=== PATIENT | male | born 1990 | race African-American/Black ===

== ENCOUNTER 2018-10-12 00:16 | Emergency (ER) | payer SELFPAY ==
[2018-10-12 00:51] VITALS: BP 130/76; PULSE 85; TEMP 97.6; BMI 30.6
--- NOTE | 2018-10-12 00:54 | PDOC ---
Attending Attestation - Resident Resident Name: Lucio Coronel - ED Attending Attestation I have performed the following: I have examined & evaluated the patient, The case was reviewed & discussed with the resident, I agree w/resident's findings & plan, Exceptions are as noted - HPI HPI: 10/12/18 02:49 Mr Tom is a 28 yo M who presents to the ER s/p fall onto his left hand s/p fall at 6pm yesterday while playing basketball. He fell and landed on his left wrist. No LOC, head strike. 10/12/18 02:52 - Physicial Exam PE: 10/12/18 02:50 GENERAL: The patient is in no acute distress. HEAD: Normal with no signs of trauma. NECK: Normal range of motion, supple without midline tenderness LUNGS: Breath sounds equal, clear to auscultation bilaterally. HEART:Regular rate and rhythm, normal S1 and S2 without murmur, rub or gallop. ABDOMEN: Soft, nontender, normoactive bowel sounds. EXTREMITIES: Left hand tender to palpation, ROM limited at wrist, moves fingers Snuffbox tenderness Lateral metatarsal tenderness NEUROLOGICAL: Cranial nerves II through XII grossly intact. Normal speech. No focal neurological deficits. SKIN: No laceration - Medical Decision Making 10/12/18 02:54 28 yo M with left hand injury Will do Xray Will do motrin X ray demonstrates: triquetral fracture, initial presentation Volar splint applied for triquetral fracture Thumb spica applied due to snuff box tenderness Follow up with Hand within 1 week *DC/Admit/Observation/Transfer Diagnosis at time of Disposition: Triquetral fracture - Discharge Dispostion Disposition: HOME Condition at time of disposition: Good - Prescriptions Prescriptions: Oxycodone HCl/Acetaminophen [Percocet 5-325 mg Tablet -] 1 tab PO TID PRN #9 tablet MDD 3 PRN Reason: Severe Pain - Referrals Referrals: Ilya Wong MD [Staff Physician] - - Patient Instructions Printed Discharge Instructions: DI for Wrist Fracture Additional Instructions: Please call orthopedics tomorrow morning. Please return immediately if you have any new, worsening or concerning symptoms , increasing pain, sensory loss. - Post Discharge Activity Forms/Work/School Notes: Back to Work
--- NOTE | 2018-10-12 01:34 | PDOC ---
History of Present Illness - General Chief Complaint: Injury Stated Complaint: HAND PAIN Time Seen by Provider: 10/12/18 00:53 History Source: Patient Exam Limitations: No Limitations - History of Present Illness Initial Comments: 10/12/18 01:37 Patient is a 28M with no significant medical history here today complaining of pain to his left wrist after a fall at 6pm yesterday. Patient states that he was going for a dunk in basketball when he fell and landed on his left wrist. No LOC, head strike. Denies pain elsewhere. Patient denies nausea, vomiting, fevers, chills. Denies chest pain, abdominal pain and shortness of breath. Past History - Past Medical History Allergies/Adverse Reactions: Allergies Allergy/AdvReac Type Severity Reaction Status Date / Time No Known Allergies Allergy Verified 10/12/18 00:50 Home Medications: Ambulatory Orders NK [No Known Home Medication] 10/12/18 - Suicide/Smoking/Psychosocial Hx Smoking History: Never smoked Have you smoked in the past 12 months: No Information on smoking cessation initiated: No Hx Alcohol Use: No Drug/Substance Use Hx: No Review of Systems - Review of Systems Comments:: 10/12/18 01:39 GENERAL/CONSTITUTIONAL: No fever or chills. No weakness. CARDIOVASCULAR: No chest pain or shortness of breath RESPIRATORY: No cough, wheezing, or hemoptysis. GASTROINTESTINAL: No nausea, vomiting, diarrhea or constipation. MUSCULOSKELETAL: + L wrist pain. No neck or back pain. SKIN: No rash NEUROLOGIC: No headache, vertigo, loss of consciousness, or change in strength/ sensation. ENDOCRINE: No increased thirst. No abnormal weight change HEMATOLOGIC/LYMPHATIC: No anemia, easy bleeding, or history of blood clots. ALLERGIC/IMMUNOLOGIC: No hives or skin allergy. *Physical Exam - Vital Signs Last Vital Signs Temp Pulse Resp BP Pulse Ox 97.6 F 85 20 130/76 99 10/12/18 00:50 10/12/18 00:50 10/12/18 00:50 10/12/18 00:50 10/12/18 00:50 - Physical Exam Comments: 10/12/18 01:40 GENERAL: Awake, alert, and fully oriented, in no acute distress L HAND: +snuffbox tenderness, +pain with axial loading of thumb, neurovascularly intact distal to injury. +Tender in fifth metacarpal. No pain in radius, ulna, or elbow. HEAD: No signs of trauma, normocephalic, atraumatic EYES: PERRLA, EOMI, sclera anicteric, conjunctiva clear ENT: Auricles normal inspection, hearing grossly normal, nares patent, oropharynx clear without exudates. Moist mucosa NECK: Normal ROM, supple, no lymphadenopathy, JVD, or masses LUNGS: No distress, speaks full sentences, clear to auscultation bilaterally HEART: Regular rate and rhythm, normal S1 and S2, no murmurs, rubs or gallops, peripheral pulses normal and equal bilaterally. ABDOMEN: Soft, nontender, normoactive bowel sounds. No guarding, no rebound. No masses EXTREMITIES: Normal inspection, Normal range of motion, no edema. No clubbing or cyanosis. NEUROLOGICAL: Cranial nerves II through XII grossly intact. Normal speech, normal gait, no focal sensorimotor deficits SKIN: Warm, Dry, normal turgor, no rashes or lesions noted. Moderate Sedation - Procedure Monitoring Vital Signs: Procedure Monitoring Vital Signs Temperature 97.6 F 10/12/18 00:50 Pulse Rate 85 10/12/18 00:50 Respiratory Rate 20 10/12/18 00:50 Blood Pressure 130/76 10/12/18 00:50 O2 Sat by Pulse Oximetry (%) 99 10/12/18 00:50 ED Treatment Course - RADIOLOGY Radiology Studies Ordered: Category Date Time Status WRIST W/HAND-LEFT* [RAD] Stat Radiology 10/12/18 01:01 Ordered - Medications Given in the ED: ED Medications Discontinued Medications Generic Name Dose Route Start Last Admin Trade Name Alee PRN Reason Stop Dose Admin Oxycodone/Acetaminophen 1 combo 10/12/18 01:01 10/12/18 01:09 Percocet 5/325 - PO 10/12/18 01:02 1 combo ONCE ONE Administration Medical Decision Making - Medical Decision Making 10/12/18 01:42 Patient is 28M here today with L hand/wrist pain. Vitals normal and stable. Percocet given for pain. Will do x-rays for further evaluation. Will splint and have patient follow up with ortho regardless of result. 10/12/18 02:43 X-ray shows fracture of triquetrum. Placed in volar wrist splint. Thumb given additional support. Will refer to ortho. *DC/Admit/Observation/Transfer Diagnosis at time of Disposition: Triquetral fracture - Discharge Dispostion Disposition: HOME Condition at time of disposition: Good Decision to Admit order: No - Referrals - Patient Instructions Printed Discharge Instructions: DI for Wrist Fracture Additional Instructions: Please call orthopedics tomorrow morning. Please return immediately if you have any new, worsening or concerning symptoms , increasing pain, sensory loss. - Post Discharge Activity Forms/Work/School Notes: Back to Work
== END 2018-10-12 02:52 | disposition home or self-care (01) ==
LOC: JER 00:16
DX: S62.112A Displaced fracture of triquetrum [cuneiform] bone, left wrist, initial encounter for closed fracture (principal); W18.39XA Other fall on same level, initial encounter; Y93.89 Activity, other specified; Y92.89 Other specified places as the place of occurrence of the external cause
CPT/HCPCS: 73110-TC-LT-FY; 73130-TC-LT-FY; 99281-25

== ENCOUNTER 2018-12-24 11:17 | Emergency (ER) | payer SELFPAY ==
[2018-12-24 11:31] VITALS: BP 120/78; PULSE 69; TEMP 98.1; BMI 31.2
--- NOTE | 2018-12-24 12:02 | PDOC ---
History of Present Illness - General Chief Complaint: Abscess Boil Stated Complaint: ABSCESS Time Seen by Provider: 12/24/18 11:49 History Source: Patient Exam Limitations: No Limitations - History of Present Illness Initial Comments: 12/24/18 12:02 Patient is here with complaints of left lower molar injury/pain. States broke a few years ago, and has had intermittent tenderness there but the past few days/ week has progressive worsening of pain and noted swelling 5 days ago. Denies fever, but feels may have an abscess in the area with swelling and exquisite tenderness. Timing/Duration: unsure Severity: moderate Associated Symptoms: reports: headaches, malaise. denies: cough, fever/chills Past History - Travel Traveled outside of the country in the last 30 days: No Close contact w/someone who was outside of country & ill: No - Past Medical History Allergies/Adverse Reactions: Allergies Allergy/AdvReac Type Severity Reaction Status Date / Time No Known Allergies Allergy Verified 12/24/18 11:28 Home Medications: Ambulatory Orders Amox-Tr/K Cl [Augmentin 875Mg Tablet] 1 tab PO BID #20 tablet 12/24/18 Naproxen [Naprosyn -] 500 mg PO BID #30 tablet 12/24/18 - Suicide/Smoking/Psychosocial Hx Smoking History: Never smoked Have you smoked in the past 12 months: No Hx Alcohol Use: No Drug/Substance Use Hx: Yes (MARIJUANA) Review of Systems - Review of Systems Able to Perform ROS?: Yes Is the patient limited Polish proficient: Yes Constitutional: Yes: Symptoms Reported, See HPI, Malaise. No: Chills, Fever HEENTM: Yes: Symptoms Reported, See HPI, Nose Congestion, Mouth Pain Respiratory: No: Symptoms reported Neurological: Yes: Symptoms reported, See HPI, Headache All Other Systems: Reviewed and Negative *Physical Exam - Vital Signs Last Vital Signs Temp Pulse Resp BP Pulse Ox 98.1 F 69 16 120/78 99 12/24/18 11:28 12/24/18 11:28 12/24/18 11:28 12/24/18 11:28 12/24/18 11:28 - Physical Exam General Appearance: Yes: Nourished, Appropriately Dressed HEENT: positive: TMs Normal, Other (left lower first molar cracked in half, decayed to what appears to be the pulp. Has pointing abscess noted to the lateral aspect/gingival surface of that same tooth with exquisite tenderness. 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 NML intact, Fully Oriented, Alert, Normal Mood/ Affect, Normal Response, Motor Strength 5/5 Procedures - Incision and Drainage I&D Site: Left: Other (lower first molar) Anesthesia: other (Cetacaine spray) Blade Size: 11 Dressing: No *DC/Admit/Observation/Transfer Diagnosis at time of Disposition: Abscess, dental - Discharge Dispostion Disposition: HOME Condition at time of disposition: Stable Decision to Admit order: No - Referrals - Patient Instructions Printed Discharge Instructions: DI for Tooth Abscess Additional Instructions: Rest, drink lots of fluids: Teas, water, soups Saltwater gargles/ keep mouth clean and rinse after each meal May use wet teabag for pain relief to area Avoid hard chewing foods, stick to ice cream, Jell-O, yogurt etc. Tylenol or Motrin for fever and pain Complete all medication as prescribed Seek dental appointment as soon as possible for evaluation of dental injury/pain Followup with private physician in one to 2 days as needed Return to emergency department for worsened symptoms, fevers, swelling to face or worsened pain [facility] AT [address] [address] [email or web address]: [phone] - Post Discharge Activity Forms/Work/School Notes: Back to Work
[2018-12-24] MEDS ORDERED: AMOX TR/POT CLAV 875MG/125MG TABLETS (FP) PO ONE (12:03)
[2018-12-24] MEDS ORDERED: AMOX TR/POT CLAV 875MG/125MG TABLETS (FP) ONE (12:09)
== END 2018-12-24 12:31 | disposition home or self-care (01) ==
LOC: JERFT 11:17
PROC: 0C96XZZ Drainage of Lower Gingiva, External Approach (ICD-10-PCS; principal; 2018-12-24)
DX: K05.219 Aggressive periodontitis, localized, unspecified severity (principal)
CPT/HCPCS: 99281-25